=== PATIENT | female | born 2000 | race Hispanic/Latino ===

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

== ENCOUNTER 2021-10-20 19:51 | Emergency (ER) | payer MEDICAID ==
[~2021-10-20] VITALS: Ht 154.9 cm; Wt 81.2 kg
[2021-10-20 19:52] VITALS: BP 115/63
[2021-10-20 21:17] LABS: BASOPHILS % (AUTO) 0.3 % (0.0-5.0); EOSINOPHILS % (AUTO) 1.3 % (0.0-8.0); LYMPHOCYTES % (AUTO) 26.7 % (21.0-51.0); MEAN CORPUSCULAR HEMOGLOBIN 31.5 pg (27.0-33.0); MEAN CORPUSCULAR HGB CONC 32.8 g/dL (32.0-36.0); MONOCYTES % (AUTO) 7.9 % (3.0-13.0); NEUTROPHILS % (AUTO) 63.7 % (40.0-77.0); PLATELET COUNT (AUTO) 297 K/uL (130-400); RED BLOOD CELL COUNT(AUTO) 4.48 MIL/uL (4.00-5.50); WHITE BLOOD COUNT (AUTO) 7.9 K/uL (4.8-10.8)
[2021-10-20 21:18] LABS: APPEARANCE,URINE Clear (CLEAR); BILIRUBIN,URINE Negative (NEGATIVE); COLOR,URINE Yellow (YELLOW); GLUCOSE, URINE (UA) Negative (NEGATIVE); KETONES,URINE Negative (NEGATIVE); LEUKOCYTE ESTERASE ,URINE Negative (NEGATIVE); NITRATE,URINE Negative (NEGATIVE); OCCULT BLOOD,URINE Negative (NEGATIVE); PROTEIN,URINE Negative (NEGATIVE)
[2021-10-20 21:22] LABS: HCG,QUAL RESULT NEGATIVE (NEGATIVE)
[2021-10-20] MEDS ORDERED: ONDANSETRON 4MG INJ IVP SCH (21:30)
[2021-10-20] MEDS ORDERED: 0.9%NACL 1000ML 1,000 ML IV SCH (21:30)
[2021-10-20] MEDS ORDERED: LIDOCAINE HCL 2% VISCOUS 15 ML UDCUP ONE (21:33)
[2021-10-20] MEDS ORDERED: MAG/ALUM/SIMETH 30 ML UDCUP ONE (21:33)
[2021-10-20] MEDS ORDERED: FAMOTIDINE 20MG VIAL IV ONE (21:33)
[2021-10-20] MEDS ORDERED: ONDANSETRON 4MG INJ ONE (21:33)
[2021-10-20] MEDS: LIDOCAINE HCL 2% VISCOUS 15 ML UDCUP PO SCH ×2 (21:41→21:43)
[2021-10-20] MEDS: MAG/ALUM/SIMETH 30 ML UDCUP PO SCH ×2 (21:41→21:43)
[2021-10-20] MEDS: FAMOTIDINE 20MG VIAL IV SCH ×2 (21:41→21:42)
[2021-10-20 22:00] LABS: CREATININE 0.6 mg/dL (0.5-1.5); POTASSIUM 4.1 mmol/L (3.5-5.1)
[2021-10-20 22:05] LABS: ALBUMIN 3.5 g/dL (3.5-5.0); BILIRUBIN,TOTAL 0.1 mg/dL (0.2-1.0); TOTAL PROTEIN, SERUM 7.4 g/dL (6.0-8.3)
[2021-10-20] MEDS ORDERED: FAMO-136 PO (22:57)
[2021-10-20] MEDS ORDERED: ONDA4TAB10 PO (22:57)
[2021-10-20] MEDS ORDERED: POLY17PO4 PO (22:57)
== END 2021-10-20 23:13 | disposition home or self-care (01) ==
LOC: EDH 19:51
DX: K29.70 Gastritis, unspecified, without bleeding (principal); K59.00 Constipation, unspecified
CPT/HCPCS: 36415; 80053; 81003; 81025; 83690; 85025; 96374; 96375; 99284; J2405; J7030; S0028; J3490

== ENCOUNTER 2023-02-05 12:14 | Observation (INO) | payer MEDICAID ==
[~2023-02-05] VITALS: Ht 154.9 cm; Wt 98.0 kg
[~2023-02-05 12:14] MED LIST: FAMO-136 PO; ONDA4TAB10 PO; POLY17PO4 PO
[2023-02-05 12:15] VITALS: BP 120/74; PULSE 88; RESP 18
[2023-02-05 12:56] LABS: APPEARANCE,URINE CLOUDY (CLEAR); BILIRUBIN,URINE NEGATIVE (NEGATIVE); COLOR,URINE LIGHT-YELLOW (YELLOW); GLUCOSE, URINE (UA) NEGATIVE (NEGATIVE); KETONES,URINE NEGATIVE (NEGATIVE); LEUKOCYTE ESTERASE ,URINE 250 Leu/uL (NEGATIVE); NITRATE,URINE NEGATIVE (NEGATIVE); OCCULT BLOOD,URINE NEGATIVE (NEGATIVE); PROTEIN,URINE 20 mg/dL (NEGATIVE); UROBILINOGEN,URINE 0.2 mg/dL (0.2-1.0)
[2023-02-05 12:57] LABS: ADD UA MICROSCOPIC YES
[2023-02-05] MEDS ORDERED: LACTATED RINGERS 1000ML 1,000 ML IV PRN (13:00)
[2023-02-05 13:02] LABS: BACTERIA,URINE MOD /HPF (None Seen); MUCUS,URINE RARE LPF (None Seen); SQUAMOUS EPITHELIAL CELL,UR MANY /HPF (0-2)
[2023-02-05] MEDS ORDERED: MAG/ALUM/SIMETH 30 ML UDCUP PO ONE (13:30)
[2023-02-05] MEDS ORDERED: FAMOTIDINE 20MG VIAL IV ONE (14:00)
[2023-02-05 15:46] LABS: AMPHET/METH SCREEN,URINE NEGATIVE (NEGATIVE); BARBITURATE SCREEN, URINE NEGATIVE (NEGATIVE); BENZODIAZEPINES SCREEN,URINE NEGATIVE (NEGATIVE); CANNABINOID SCREEN,URINE NEGATIVE (NEGATIVE); COCAINE SCREEN,URINE NEGATIVE (NEGATIVE); OPIATE SCREEN,URINE NEGATIVE (NEGATIVE); PHENCYCLIDINE SCREEN,URINE NEGATIVE (NEGATIVE)
[2023-03-07] MEDS ORDERED: IBUP-2077 PO (15:07)
[2023-03-07] MEDS ORDERED: DOCU-116 PO (15:07)
== END 2023-02-05 16:30 | disposition home or self-care (01) ==
LOC: EDH 12:14 → LDH 12:15
PROVIDERS: ADMIT Obstetrics & Gynecology; ATTEND Obstetrics & Gynecology
DX: O26.893 Other specified pregnancy related conditions, third trimester (principal); R10.13 Epigastric pain; N89.8 Other specified noninflammatory disorders of vagina; K29.70 Gastritis, unspecified, without bleeding; O62.9 Abnormality of forces of labor, unspecified; Z3A.35 35 weeks gestation of pregnancy; Z98.891 History of uterine scar from previous surgery; Z79.899 Other long term (current) drug therapy
CPT/HCPCS: 96374; 59025; 80305; 87088; 81001; G0378 ×4; J7120 ×2; S0028 ×2; 96360; 96361; J3490